=== PATIENT | female | born 1965 | race Caucasian/White ===

== ENCOUNTER 2022-04-15 16:21 | Outpatient (REF) | payer OTHER, SELFPAY ==
--- NOTE | ~2022-04-15 | XR_ITS ---
EXAMINATION: XR CHEST CLINICAL INFORMATION: R06.09 - Other forms of dyspnea COMPARISON: None TECHNIQUE: 2 views of the chest were obtained. FINDINGS: There is mild hyperinflation upper zones. No airspace consolidation or groundglass opacity or effusion. The costophrenic sulci are clear. Heart size normal. Vascularity normal. The hilar and mediastinal contours are unremarkable. There is a gentle levocurvature lower thoracic spine. XR/XR chest 2V IMPRESSION: Mild hyperinflation upper zones. Lungs clear.
== END 2022-04-15 16:22 | disposition home or self-care (01) ==
LOC: HO.XRAY 16:21
PROVIDERS: Visit Provider Internal Medicine
DX: R06.09 Other forms of dyspnea (principal); U09.9 Post COVID-19 condition, unspecified
CPT/HCPCS: 71046